=== PATIENT | female | born 1965 | race Caucasian/White ===

== ENCOUNTER 2021-05-30 16:44 | Emergency (ER) | payer BC, SELFPAY ==
--- NOTE | ~2021-05-30 | XR_ITS ---
EXAMINATION: XR wrist RT min 3V EXAM DATE: 05/30/2021 17:54 INDICATION: Initial encounter following injury, with pain of the right wrist. TECHNIQUE: Right wrist frontal, frontal with ulnar deviation, oblique and lateral projections obtain ed and reviewed. There is no prior study for comparison. FINDINGS: Right wrist scapholunate joint space is maintained. There is equivocal acute closed posttra umatic nondisplaced fracture of the right radial distal metaphysis, or this could be a congenital con tour abnormality. Please check for point tenderness overlying this location, finding has been indicat ed on the exam for clinical correlation. No other suspicious findings. IMPRESSION: Possible nondisplaced right radial distal metaphyseal fracture dorsally laterally. Reviewed, dictated and finalized at location A. O FORMING MACHINE OPERATOR IMPRESSION: Possible nondisplaced right radial distal metaphyseal fracture franklyn emmanuelle laterally.
[2021-05-30 17:11] VITALS: BP 175/90; PULSE 62; RESP 20; TEMP 36.7; O2SAT 100
--- NOTE | 2021-05-30 17:14 | ED.FALL ---
HPI - Fall General Chief Complaint: Extremity Injury, Upper Stated Complaint: fall,rt arm,face and knee pain Time Seen by Provider: 05/30/21 17:14 Source: patient and RN notes reviewed Mode of arrival: ambulatory Limitations: no limitations History of Present Illness HPI Narrative: 55-year-old female presents to the [facility] with complaints of right wrist, right knee pain after tripping and falling at the theater. Did hit her right side of face, no loss of consciousness, no dizziness, no nausea vomiting. Denies any change in vision or blurry vision. No midline tenderness. Patient denies any chest pain or abdominal pain. No fevers. Denies shortness of breath. Small bruise measuring 1 cm in diameter to the right cheek. Patient is also complaining of right knee discomfort but right wrist pain hurts the most. Walks with a normal gait. No treatment prior to arrival Related Data Allergies Allergy/AdvReac Type Severity Reaction Status Date / Time cefprozil [From Cefzil] Allergy Rash Verified 05/30/21 17:43 Review of Systems Review of Systems: All systems reviewed & are unremarkable except as noted in HPI and below Constitutional: Constitutional: Reports no additional constitutional complaints and Denies chills Eyes: Eyes: Reports no additional eye complaints, Denies change in vision and Denies photophobia ENT: Reports system reviewed and no additional complaints, except as documented Cardiovascular: Cardiovascular: Reports no additional cardiovascular complaints Respiratory: Respiratory: Reports no additional respiratory complaints Gastrointestinal: Gastrointestinal: Reports no additional gastrointestinal complaints Musculoskeletal: Musculoskeletal: Reports as per HPI, Denies back pain and Reports arthralgias (Right wrist, right knee) Integumentary/Breasts: Skin/Breast: Reports system reviewed and no additional complaints, except as docu, Denies erythema and Denies rash Neurologic: Reports system reviewed and no additional complaints, except as documented, Denies confusion, Denies vertigo, Denies dizziness, Denies syncope, Denies headache(s), Denies focal weakness, Denies numbness and Denies weakness Psychiatric: Psychiatric: Reports no additional psychiatric complaints Allergic/Immunologic: Allergic/Immunologic: Reports no additional allergic/immunologic complaints [facility] Past Medical History Medical History (Updated 05/30/21 @ 19:52 by Eryn Keating) Bipolar affect, depressed Depression High cholesterol Hypertension Irregular heartbeat Surgical History Surgical History (Updated 05/30/21 @ 19:52 by Eryn Keating) History of laparoscopic adjustable gastric banding 2011 Social History Social History (Updated 05/30/21 @ 19:52 by Eryn Keating) Living arrangements: with family Gender identity (if verbalized by the patient): Female Comments At the time of my signature, I reviewed and agree with the nursing past medical, surgical, social, and family history. There is no relevant family history pertinent to the patient complaint. Exam Const: General: healthy appearing, no acute distress and alert Nutritional Appearance: well nourished and obese Orientation/consciousness: patient oriented x3 Limitations: no limitations HENMT: Head: normal to inspection Ears: external ears normal, TM's normal bilaterally and EAC's normal Eyes: Conjunctivae: conjunctivae normal Pupils: Equal, round and reactive pupils present Direct Ophthalmoscopy: no photophobia Neck: Neck: normal visual inspection, no lymphadenopathy and no meningeal signs Chest: Chest palpation & inspection: normal inspection of the chest Resp: Effort & Inspection: normal respiratory effort and no use of accessory muscles Auscultation: clear to auscultation bilaterally, no crackles, no rales, no rhonchi and no wheezes Cardio: Rate: regular rate Rhythm: regular rhythm GI: GI Palp: Yes Soft to palpation and No Tenderness to palpation pr
--- NOTE | 2021-05-30 18:13 | PC.NURSE ---
Need radial gutter splint per provider.
== END 2021-05-30 18:41 | disposition home or self-care (01) ==
PROVIDERS: Emergency Provider Nurse Practitioner
DX: S52.501A Unspecified fracture of the lower end of right radius, initial encounter for closed fracture (principal); W01.0XXA Fall on same level from slipping, tripping and stumbling without subsequent striking against object, initial encounter; Y92.254 Theater (live) as the place of occurrence of the external cause; E78.00 Pure hypercholesterolemia, unspecified; I10 Essential (primary) hypertension; F32.A Depression, unspecified
CPT/HCPCS: 29125; 73110; 99204; A4565; G0463

== ENCOUNTER 2022-01-29 07:40 | Outpatient (CLI) | payer BC, SELFPAY ==
--- NOTE | ~2022-01-29 | MM_ITS ---
EXAMINATION: MM screening aditya BI w [place] HISTORY: Screening mammogram TECHNIQUE: Craniocaudal and mediolateral oblique 3-D tomosynthesis images were obtained and synthetic 2-D images were generated. CAD analysis was submitted and interpreted. COMPARISON: No prior mammogram is available for comparison at this institution. BREAST PARENCHYMAL COMPOSITION: There are scattered areas of fibroglandular density. FINDINGS: RIGHT BREAST: There is focal asymmetry in the middle third of the lower breast. LEFT BREAST: There is no suspicious mass, calcification, or architectural distortion to suggest malig matilde. IMPRESSION: 1. Right breast focal asymmetry 2. Additional mammographic views and possible breast ultrasound are recommended. BI-RADS Category 0: Incomplete: Needs additional imaging evaluation. Reviewed, dictated and finalized at location A. IMPRESSION: 1. Right breast focal asymmetry 2. Additional mammographic views and possible breast ultrasound are recommended . BI-RADS Category 0: Incomplete: Needs additional imaging evaluation.
== END 2022-01-29 07:41 | disposition home or self-care (01) ==
LOC: ANHIMG 07:42
PROVIDERS: PCP Internal Medicine; Visit Provider Internal Medicine
DX: Z12.31 Encounter for screening mammogram for malignant neoplasm of breast (principal); R92.8 Other abnormal and inconclusive findings on diagnostic imaging of breast
CPT/HCPCS: 77063; 77067

== ENCOUNTER 2022-08-22 09:33 | Outpatient (CLI) | payer BC, SELFPAY ==
--- NOTE | ~2022-08-22 | US_ITS ---
EXAMINATION: US renal BI DATE: 08/22/2022 12:24 INDICATION: N28.1 - Cyst of kidney, acquired TECHNIQUE: Multiple grayscale and Doppler ultrasound images of the kidneys were obtained. COMPARISON: None. FINDINGS: The right kidney measures 10.1 x 5.1 x 4.6 cm. The left kidney measures 9.8 x 5.1 x 5.2 cm. The kidne ys demonstrate normal parenchymal echogenicity. 1.8 cm simple left midpole cyst There is no hydroneph rosis. The bladder is distended, bilateral jets are seen, wall thickness 4 mm. IMPRESSION: Simple left renal cyst. Urinary bladder wall thickening, correlate with urinalysis. Reviewed, dictated and finalized at location K. R HAND IMPRESSION: Simple left renal cyst. Urinary bladder wall thickening, correlate with urinaly sis.
== END 2022-08-22 09:34 | disposition home or self-care (01) ==
PROVIDERS: PCP Internal Medicine; Visit Provider Nurse Practitioner Family
DX: N28.1 Cyst of kidney, acquired (principal)
CPT/HCPCS: 76775

== ENCOUNTER 2022-09-11 14:55 | Emergency (ER) | payer BC, SELFPAY ==
--- NOTE | ~2022-09-11 | XR_ITS ---
EXAM: XR sacrum coccyx min 2V DATE: 09/11/2022 15:32 HISTORY: fell 4 days, pain rt side sacrum/coccyx . COMPARISON: None available. FINDINGS: Normal mineralization. No fracture. One half bone width posterior displacement of the seco nd coccygeal element. No lytic or blastic lesion. Degenerative disc disease and facet arthropathy in the lumbar spine. Mild bilateral hip osteoarthritis. Pelvic phleboliths. No erosion or periosteal rashi nge. Soft tissues within normal limits. IMPRESSION: One half bone width posterior displacement of the second coccygeal element, which may be an acute or chronic finding, correlate with pain/tenderness. Reviewed, dictated and finalized at location K. OGRAPHIC PRESS OPERATOR APPRENTICE IMPRESSION: One half bone width posterior displacement of the second coccygeal element, which may be an acute or chronic finding, correlate with pain/tenderne ss.
[2022-09-11 15:06] VITALS: BP 143/80; PULSE 72; RESP 16; TEMP 36; O2SAT 100
--- NOTE | 2022-09-11 15:24 | ED.FALL ---
HPI - Fall General Chief Complaint: Fall Stated Complaint: Lower Back Pain Due to Fall Time Seen by Provider: 09/11/22 15:08 Source: patient Mode of arrival: ambulatory Limitations: no limitations History of Present Illness HPI Narrative: Hanna is a 57-year-old female patient presenting to the clinic today with complaints of tailbone pain times 4-5 days. She reports that her smoke alarm detector was chirping around 4:00 a.m. and she was up on the step stool trying to replace the battery when she fell backwards and landed on her bottom on a hard wood floor. States she has been taking Tylenol and ibuprofen with minimal relief. Related Data Home Medications Medication Instructions Recorded Confirmed divalproex 250 mg tablet,delayed 250 mg PO QAM 05/30/21 09/11/22 release (Depakote) fluoxetine 20 mg capsule 40 mg PO DAILY 05/30/21 09/11/22 levomefolate calcium 15 mg tablet 15 mg PO DAILY 09/11/22 09/11/22 Allergies Allergy/AdvReac Type Severity Reaction Status Date / Time cefprozil [From Cefzil] Allergy Rash Verified 09/11/22 15:07 Review of Systems Review of Systems: Pertinent positives per HPI. Patient denies any fever, chills, rash, headache, visual changes, dizziness, cough, runny nose, sore throat, shortness of breath, chest pain, palpitations, nausea, vomiting, diarrhea, constipation, abdominal pain, or any urinary issues. [facility] Past Medical History Medical History Bipolar affect, depressed Depression High cholesterol History of multiple miscarriages Hypertension Irregular heartbeat Surgical History Surgical History History of laparoscopic adjustable gastric banding 2012 S/P dilation and curettage Family History Family History Other Asthma Diabetes mellitus Hypertension Lung cancer Social History Social History Smoking status: Never smoker Second hand tobacco smoke exposure: Yes Alcohol intake: current Substance use: never Lack of Transportation: No Lack of Food: Never True Current Housing: I Have Housing Concerned About Future Housing: No Difficulty Paying Gas/Electric Bills: No Difficulty Paying for Meds: No Currently Unemployed: No Education: Associate Degree Difficulty w/ Childcare or Family Care: No Living arrangements: with family Gender identity (if verbalized by the patient): Female Comments At the time of my signature, I reviewed and agree with the nursing past medical, surgical, social, and family history. There is no relevant family history pertinent to the patient complaint. Exam Narrative: General: Well-developed, well nourished, in no apparent distress Head: Normocephalic, atraumatic. Cardio: Regular rate and rhythm, s1 and s2 normal, no murmur appreciated. Resp: Clear to auscultation bilaterally, no rhonchi, rales, wheezing or rubs. Musculoskeletal: No deformity, mild tenderness to palpation over the tailbone, grossly normal range of motion, muscle strength strong and equal, peripheral pulse strong, no edema, no cyanosis, normal gait and station Course Course Emergency Course: Portions of this record may have been created with voice recognition software. Level of Care: Express Care Visit Vital Signs Vital signs: Vital Signs Temperature 36.0 C L 09/11/22 15:06 Pulse Rate 72 09/11/22 15:06 Respiratory Rate 16 09/11/22 15:06 Blood Pressure 143/80 H 09/11/22 15:06 Pulse Oximetry 100 09/11/22 15:06 Oxygen Delivery Room Air 09/11/22 15:06 Temperature 36.0 C L 09/11/22 15:06 Pulse Rate 72 09/11/22 15:06 Respiratory Rate 16 09/11/22 15:06 Blood Pressure 143/80 H 09/11/22 15:06 Pulse Oximetry 100 09/11/22 15:06 Oxygen Delivery Room Air 09/11/22 15:06 Vital signs reviewed
== END 2022-09-11 16:00 | disposition home or self-care (01) ==
PROVIDERS: Emergency Provider Nurse Practitioner Family; PCP Nurse Practitioner Family
DX: S32.2XXA Fracture of coccyx, initial encounter for closed fracture (principal); W17.89XA Other fall from one level to another, initial encounter; E78.00 Pure hypercholesterolemia, unspecified; I10 Essential (primary) hypertension
CPT/HCPCS: 72220; 99213; G0463

== ENCOUNTER → 2022-11-16 12:37 | Outpatient (CLI) | payer BC, SELFPAY ==
--- NOTE | ~2022-11-16 | US_ITS ---
EXAMINATION: US thyroid DATE: 11/16/2022 12:59 INDICATION: Nontoxic single thyroid nodule TECHNIQUE: Multiple ultrasound images of the thyroid were obtained. COMPARISON: None. FINDINGS: The right thyroid lobe measures 4.8 x 1.9 x 2.1 cm. The left thyroid lobe measures 3.8 x 1.0 x 1.1 c m. There are a pair of similar appearing solid hypoechoic wider than tall nodules in the right thyro id with smooth margins and without echogenic foci (TI-RADS 4, moderately suspicious , FNA if >=1.5 cm , annual followup is >=1 cm). The larger at the upper pole measures 1.9 cm in maximal diameter and th e smaller and more inferior measures 1.4 cm. There is a third 6 mm right thyroid nodule which is slig htly small cystic component demonstrated similar imaging features also TI RADS 4. There is normal ech otexture, echogenicity and vascular flow throughout the remaining thyroid gland. IMPRESSION: 1. 3 TI RADS 4 right thyroid nodules. Recommend ultrasound-guided biopsy of the largest which measure s 1.9 cm. Reviewed, dictated and finalized at location A. IMPRESSION: 1. 3 TI RADS 4 right thyroid nodules. Recommend ultrasound-guided biopsy of the largest which measures 1.9 cm.
== END ==
PROVIDERS: PCP Nurse Practitioner Family; Visit Provider Nurse Practitioner Family
DX: E04.1 Nontoxic single thyroid nodule (principal)
CPT/HCPCS: 76536

== ENCOUNTER 2022-11-27 10:14 | Outpatient (CLI) | payer BC, SELFPAY ==
--- NOTE | ~2022-11-27 | US_ITS ---
EXAMINATION: US FNA w image guidance DATE: 11/27/2022 11:26 INDICATION: Nontoxic single thyroid nodule TECHNIQUE: A time-out was performed to verify the patient's name, date of , and procedure to be performed . The procedure and its benefits and risks were discussed with the patient. Risks specifically discus sed included bleeding and infection. The patient understood the risks and agreed to proceed. The neck was prepped and draped in the usual sterile manner. 3 mL 1% lidocaine was used for local anesthesia . 6 passes were made with a 25G needle into the lesion. Appropriate needle location was documented with continuous sonographic guidance. A sterile bandage was applied. There were no immediate compli cations. FINDINGS: Grayscale ultrasound images demonstrate biopsy needles advanced into the largest 2.0 cm TI RADS 4 nod ule at the mid to superior right thyroid. IMPRESSION: 1. Successful ultrasound-guided fine needle aspiration of the largest 2.0 cm TI RADS 4 right thyroid nodule. Reviewed, dictated and finalized at location A. IMPRESSION: 1. Successful ultrasound-guided fine needle aspiration of the largest 2.0 cm T I RADS 4 right thyroid nodule.
== END 2022-11-27 10:15 | disposition home or self-care (01) ==
PROVIDERS: PCP Nurse Practitioner Family; Visit Provider Nurse Practitioner Family
DX: E04.1 Nontoxic single thyroid nodule (principal)
CPT/HCPCS: 10005; 88173; 88305

== ENCOUNTER 2023-02-20 15:02 | Outpatient (CLI) | payer BC, SELFPAY ==
--- NOTE | ~2023-02-20 | MM_ITS ---
EXAMINATION: MM screening aditya BI w [place] HISTORY: Screening mammogram TECHNIQUE: Craniocaudal and mediolateral oblique 3-D tomosynthesis images were obtained and synthetic 2-D images were generated. CAD analysis was submitted and interpreted. COMPARISON: 01/29/2022, 03/16/2021, 06/09/2019 bilateral screening mammogram examinations BREAST PARENCHYMAL COMPOSITION: The breasts are almost entirely fatty. FINDINGS: Stable mild fibroglandular asymmetry. There is no evidence of suspicious mass, calcificatio n, or architectural distortion to suggest malignancy in either breast. There has been no suspicious i nterval change. IMPRESSION: 1. No mammographic evidence of malignancy. 2. Recommend routine screening mammography in one year. BI-RADS Category 1: Negative Reviewed, dictated and finalized at location A.
== END 2023-02-20 15:03 | disposition home or self-care (01) ==
LOC: ANHIMG 15:04
PROVIDERS: PCP Nurse Practitioner Family; Visit Provider Nurse Practitioner Family
DX: Z12.31 Encounter for screening mammogram for malignant neoplasm of breast (principal)
CPT/HCPCS: 77063; 77067

== ENCOUNTER 2023-05-23 08:17 | Outpatient (CLI) | payer BC, SELFPAY ==
--- NOTE | ~2023-05-23 | US_ITS ---
EXAMINATION: US thyroid DATE: 05/23/2023 09:15 INDICATION: Nontoxic single thyroid nodule. TECHNIQUE: Multiple ultrasound images of the thyroid were obtained. COMPARISON: Thyroid ultrasound 11/16/2022, 11/27/2022 FINDINGS: The right thyroid lobe measures 4.9 x 1.7 x 2.1 cm. The left thyroid lobe measures 4.2 x 1.3 x 1.5 c m. In the right thyroid lobe, there is a 2.2 cm solid, hypoechoic, wider than tall nodule with daniel h margin without echogenic foci (TI-RADS TR4), stable from 11/27/22 when biopsy was benign. In the righ t thyroid lobe, there is a 1.5 cm solid, hypoechoic, wider than tall nodule with smooth margin withou t echogenic foci (TR4), stable from 11/16/22. In the right thyroid lobe, there is a 5 mm solid, hypoec hoic, wider than tall nodule with smooth margin without echogenic foci (TR4). In the left thyroid lob e, there is a 5 mm solid, hypoechoic, wider than tall nodule with smooth margin without echogenic foc i (TR4). IMPRESSION: 1. Stable multinodular goiter. Consider ultrasound-guided fine needle aspiration of the 1.5 cm right thyroid nodule. Reviewed, dictated and finalized at location E. IMPRESSION: 1. Stable multinodular goiter. Consider ultrasound-guided fine needle aspiratio n of the 1.5 cm right thyroid nodule.
== END 2023-05-23 08:18 | disposition home or self-care (01) ==
PROVIDERS: PCP Nurse Practitioner Family; Visit Provider Internal Medicine Endocrinology, Diabetes & Metabolism
DX: E04.2 Nontoxic multinodular goiter (principal)
CPT/HCPCS: 76536

== ENCOUNTER 2023-10-03 22:32 | Emergency (ER) | payer BC, SELFPAY ==
--- NOTE | ~2023-10-03 | CT_ITS ---
Non-contrast CT scan of the Abdomen and Pelvis Clinical indication: Flank pain Technique: 2.5 mm axial scans were obtained through the abdomen and pelvis without intravenous or or al contrast. Dose reduction technique was used on this scan by utilizing automated exposure control a nd iterative reconstruction technique. The dose-length product (DLP) was 1378.34 mGy-cm. Findings: Images through the lung bases reveal no abnormalities. There is no evidence of renal or ureteral calculi. The kidneys and the ureters are nondilated. The liver, spleen, pancreas, gallbladder, and adrenals appear normal. There is no aortic aneurysm. There is no evidence of bowel obstruction. Gastric lap band present. Normal appendix. Images through the pelvis were performed. There is no evidence of ascites or lymphadenopathy. Urinary bladder unremarkable. No pelvic mass seen. Impression: No significant abnormality seen. Reviewed, dictated and finalized at [facility]. Impression: No significant abnormality seen.
[2023-10-03 22:35] VITALS: BP 123/77; PULSE 98; RESP 15; TEMP 36.4; O2SAT 98
[2023-10-03 22:51] LABS: Basophils Percent Auto 0.4 % (0.2-1.2); Eosinophils Absolute Auto 0.1 K/mm3 (0-0.3); Eosinophils Percent Auto 0.7 % (0-4.4); Hematocrit 41.5 % (37.0-47.0); Hemoglobin 13.7 g/dL (12.0-15.0); Immature Granulocyte Absolute 0.02 K/mm3 (0.00-0.031); Immature Granulocyte Percent A 0.2 % (0-0.5); Lymphocytes Absolute Auto 2.88 K/mm3 (0.9-3.2); Lymphocytes Percent Auto 34.4 % (18.3-44.2); Mean Corpuscular Hemoglobin 27.1 pg (26-34); Mean Platelet Volume 11.3 fl (7.4-10.4); Monocytes Absolute Auto 0.6 K/mm3 (0.1-0.6); Monocytes Percent Auto 6.9 % (2.6-8.5); Neutrophils Absolute Auto 4.8 K/mm3 (1.3-6.7); Neutrophils Percent Auto 57.4 % (45.5-73.1); Platelet Count Result 227 k/mm3 (150-375); Red Blood Count 5.06 M/mm3 (4.2-5.4); Red Cell Distribution Width 14.5 % (11.5-14.5); White Blood Count 8.4 K/mm3 (4.5-10.0)
[2023-10-03 23:05] LABS: Alanine Aminotransferase 16 U/L (6-35); Albumin Level 4.1 g/dL (3.5-5.1); Alkaline Phosphatase 83 U/L (38-126); Anion Gap 13 mmol/L (8-16); Aspartate Amino Transferase 25 U/L (14-36); Bilirubin,Total 0.6 mg/dL (0.2-1.3); Blood Urea Nitrogen 18 mg/dL (7-17); Calcium 9.7 mg/dL (8.4-10.2); Carbon Dioxide 18 mmol/L (22-30); Chloride 106 mmol/L (98-107); Estimated CRCL calculation 82 ml/min; Estimated Glomerular Filt Rate > 60; Glucose 128 mg/dL (65-110); Lipase 81 U/L (23-300); Potassium 3.7 mmol/L (3.4-5.0); Sodium 137 mmol/L (137-145)
[2023-10-04 00:17] LABS: Appearance Urine Clear (Clear); Bacteria Urine None Seen /hpf; Bilirubin Urine Negative (Negative); Blood Urine Negative (Negative); Color Urine Dark Yellow (Yellow); Glucose Urine UA Negative (Negative); Ketones Urine 3+ mg/dL (Negative); Leukocyte Esterase Ur Trace LEU/UL (Negative); Need Manual Microscopic Reviewed; Nitrate Urine Negative (Negative); Non Pathogenic Casts 0-2; Protein Urine 1+ mg/dL (Negative); RBC Urine 0-2 /hpf (0-2); Specific Grav Ur 1.032 (1.001-1.035); Squamous Epithelial Cell Urine Occasional /hpf (Few); WBC Urine 0-5 /hpf (0-3)
[2023-10-04 00:18] LABS: Add Urine Microscopic? YES
[2023-10-04 00:32] VITALS: BP 187/98; PULSE 83; RESP 15; O2SAT 100
[2023-10-04] MEDS: KETOROLAC 15 MG/ML VIAL (*BKC) IV PUSH (00:34)
[2023-10-04] MEDS: ACETAMINOPHEN 500 MG TABLET 1000 MG PO (00:34)
[2023-10-04] MEDS: HYDROmorphone HCL INJ (*CRX) 1 MG/ML SYR 0.5 MG IV PUSH (00:36)
--- NOTE | 2023-10-04 04:17 | PC.NURSE ---
See downtime charting
[2023-10-04 04:18] VITALS: BP 184/86; PULSE 90; RESP 18; O2SAT 100
[2023-10-04 05:20] VITALS: BP 151/75; PULSE 86; RESP 15; O2SAT 95
--- NOTE | 2023-10-08 09:30 | ED.GENADULT ---
HPI - General Adult General Chief complaint: Abdominal Pain Stated complaint: flank pain Time Seen by Provider: 10/03/23 23:34 History of Present Illness HPI narrative: this is a 58-year-old female presenting ED with chief complaint of left flank pain and groin pain. Patient states that it woke her from sleep. Is mostly in her left glute wraps around into. It is worse with movement. She denies fevers chills chest pain difficulty breathing abdominal pain or urinary symptoms. She is not taking anything for pain yet. Related Data Home Medications Medication Instructions Recorded Confirmed fluoxetine 20 mg capsule 40 mg PO DAILY 05/30/21 10/07/23 cholecalciferol (vitamin D3) 10 10 mcg PO DAILY 02/13/23 10/07/23 mcg (400 unit) capsule levomefolate calcium 15 mg tablet 7.5 mg PO DAILY 09/09/23 10/07/23 acetaminophen 500 mg tablet 500 mg PO TID PRN 10/07/23 10/07/23 (Tylenol Extra Strength) Allergies Allergy/AdvReac Type Severity Reaction Status Date / Time cefprozil [From Cefzil] Allergy Rash Verified 10/07/23 13:16 [facility] Past Medical History Medical History Bipolar affect, depressed Depression High cholesterol History of multiple miscarriages Hypertension Irregular heartbeat Surgical History Surgical History History of laparoscopic adjustable gastric banding 2012 S/P dilation and curettage Family History Family History Other Asthma Diabetes mellitus Hypertension Lung cancer Social History Social History Smoking status: Never smoker Second hand tobacco smoke exposure: Yes Alcohol intake: current Substance use: never Lack of Transportation: No Lack of Food: Never True Current Housing: I Have Housing Concerned About Future Housing: No Difficulty Paying Gas/Electric Bills: No Difficulty Paying for Meds: No Currently Unemployed: No Education: Associate Degree Difficulty w/ Childcare or Family Care: No Living arrangements: with family Gender identity (if verbalized by the patient): Female Exam Narrative: APPEARANCE: No apparent distress. Head: atraumatic. EYES: EOMI, NOSE: Atraumatic NECK: Trachea midline RESPIRATORY: No increased rate of breathing CARDIOVASCULAR: RRR, ABDOMINAL: Abdomen is soft nontender without guarding rebound MUSCULOSKELETAl: some tenderness in left paralumbar region. Negative straight leg bilaterally. groin exam revealed no rashes, palpable pulses. No tenderness to palpation NEURO: Alert. Moving 4/4 extremities SKIN:: Warm, dry. Normal color PSYCHIATRIC: Normal affect Course Vital Signs Vital signs: Vital Signs Temperature 97.5 F L 10/03/23 22:35 Pulse Rate 98 10/03/23 22:35 Respiratory Rate 15 10/03/23 22:35 Blood Pressure 123/77 10/03/23 22:35 Pulse Oximetry 98 10/03/23 22:35 Oxygen Delivery Room Air 10/03/23 22:35 Temperature 97.5 F L 10/03/23 22:35 Pulse Rate 86 10/04/23 05:20 Respiratory Rate 15 10/04/23 05:20 Blood Pressure 151/75 H 10/04/23 05:20 Pulse Oximetry 95 10/04/23 05:20 Oxygen Delivery Room Air 10/03/23 22:35 Medical Decision Making MDM Narrative Medical decision making narrative: -Course: 58-year-old female presenting with left glute/groin pain. Laboratory studies and imaging negative for acute findings. Patient was treated with multiple rounds of pain medication and muscle relaxers with some improvement. Patient discharged with primary care follow-up ddx: MUSCLE STRAIN, MUSCLE SPASM KIDNEY STONE, UTI, INTRA-ABDOMINAL Vital Signs Vital Signs: Vital Signs Temperature 97.5 F L 10/03/23 22:35 Pulse Rate 98 10/03/23 22:35 Respiratory Rate 15 10/03/23 22:35 Blood Pressure 123/77 10/03/23 22:35 Pulse Oximetry 98 03/1
== END 2023-10-04 05:33 | disposition home or self-care (01) ==
PROVIDERS: Emergency Provider Emergency Medicine; PCP Nurse Practitioner Family
DX: R10.32 Left lower quadrant pain (principal); E78.00 Pure hypercholesterolemia, unspecified; I10 Essential (primary) hypertension; F31.9 Bipolar disorder, unspecified
CPT/HCPCS: 36415; 74176; 80053; 81025; 83690; 85025; 96374; 96375; 99284; A9270; J1170; J1885; J3360; J7030

== ENCOUNTER 2023-10-23 08:44 | Outpatient (CLI) | payer BC, SELFPAY ==
--- NOTE | ~2023-10-23 | DEXA_ITS ---
Bone Density Report Name: YADI GAMEZ Age: 58 Sex: Female Ethnicity: White Date of : 1965 Indication: postmenopausal; screening for osteoporosis; history of glucocorticoids; Referring Provider: IRON GUO Study: Bone densitometry was performed. Exam Date: October 23, 2023 Accession number: [id number] Bone Density: Region BMD T-score Z-score Classification AP Spine(L1-L4) 1.071 0.2 1.6 Normal Femoral Neck (Left) 0.736 -1.0 0.2 Normal Total Hip (Left) 0.984 0.3 1.3 Normal Femoral Neck (Right) 0.778 -0.6 0.6 Normal Total Hip (Right) 0.965 0.2 1.1 Normal Total Hip Mean 0.975 0.3 1.2 Normal World Health Organization criteria for BMD impression classify patients as: Normal (T-score at or above -1.0), Osteopenia (T-score between -1.0 and -2.5), or Osteoporosis (T-score at or below -2.5). 10-year Fracture Risk: FRAX not reported because: All T-scores for Spine Total, Hip Total, Femoral Neck at or above -1.0 Clinical Information Provided by Patient: Has taken Glucocorticoids Has used the following medications: Vitamin D Patient maximum height was 66 No regular weight bearing exercise Does not regularly consume dairy products Onset of menses at age 10 Number of children 1 Impression: The patient has normal bone mass. The patient has risk factors, including: history of glucocorticoid therapy. Discussion: BONE DENSITY IS ABOVE THE MINIMUM DESIRABLE LEVEL AT ALL SKELETAL SITES TESTED. This patient?s bone mineral density is above the minimum desirable level (T-score -1.0 or better) at all sites measured. The patient should follow a healthful lifestyle (good nutrition with adequate calcium and vitamin D, and appropriate weight-bearing exercise). Follow-Up: Consider repeating this study in 5 years or sooner if there is some new clinical indication. Reported by: RAJINDER on 10/23/2023 9:18:00 AM. Reviewed, dictated and finalized at location Jeffy ORELLANA
== END 2023-10-23 08:45 | disposition home or self-care (01) ==
LOC: ANHIMG 08:47
PROVIDERS: PCP Nurse Practitioner Family; Visit Provider Internal Medicine Endocrinology, Diabetes & Metabolism
DX: Z13.820 Encounter for screening for osteoporosis (principal); Z78.0 Asymptomatic menopausal state; Z92.241 Personal history of systemic steroid therapy
CPT/HCPCS: 77080

== ENCOUNTER 2024-02-20 09:40 | Outpatient (CLI) | payer BC, SELFPAY ==
--- NOTE | ~2024-02-20 | US_ITS ---
Thyroid ultrasound. Clinical History: Nontoxic thyroid nodule COMPARISON: 05/23/2023 Findings: Real-time sonography of the thyroid gland was performed. The right lobe measures 4.9 x 2.1 x 1.8 cm. The left lobe measures 4.5 x 1.3 x 1.0 cm. The isthmus is 2 mm in AP diameter. There is a 2.0 x 1.5 x 1.4 hypoechoic solid nodule at the right mid to upper pole. There is a 1.3 x 1 .2 x 1.2 cm hypoechoic solid nodule at the right lower pole. There is an additional 0.6 cm hypoechoic solid nodule at the right lower pole. There is a 0.7 cm hypoechoic solid nodule at the posterior aspect of the left mid to upper pole. Impression: Stable bilateral thyroid nodules, as detailed above.. Reviewed, dictated and finalized at [facility]. Impression: Stable bilateral thyroid nodules, as detailed above..
== END 2024-02-20 09:41 | disposition home or self-care (01) ==
PROVIDERS: PCP Nurse Practitioner Family; Visit Provider Internal Medicine Endocrinology, Diabetes & Metabolism
DX: E04.2 Nontoxic multinodular goiter (principal)
CPT/HCPCS: 76536

== ENCOUNTER 2024-05-21 13:39 | Outpatient (CLI) | payer BC, SELFPAY ==
--- NOTE | ~2024-05-21 | CT_ITS ---
Non-contrast Head CT History: Tremor Technique: Axial non-contrast imaging of the brain was performed. Dose reduction technique was used on this scan by utilizing automated exposure control and iterative reconstruction technique. The dose -length product (DLP) was 605.33 mGy-cm. Findings: There is no evidence of intracranial hemorrhage, mass lesion, or acute infarct. Brain par enchyma appears normal. The ventricles and subarachnoid spaces are normal in size. The calvarium ap pears normal. The visualized paranasal sinuses and mastoid air cells are clear. Impression: No significant abnormality seen. Reviewed, dictated and finalized at location . Impression: No significant abnormality seen.
== END 2024-05-21 13:40 | disposition home or self-care (01) ==
PROVIDERS: PCP Nurse Practitioner Family; Visit Provider Nurse Practitioner Family
DX: R25.1 Tremor, unspecified (principal)
CPT/HCPCS: 70450

== ENCOUNTER 2024-09-28 00:43 | Day surgery (SDC) | payer BC, SELFPAY ==
[2024-09-24 13:40] VITALS: BMI 32.8
--- OUTSIDE RECORDS SUMMARY | 2024-09-28 00:47 | XMS_ITS ---
Author Organization [facility] Address [address] [place] [address] [address] [address] Care Team Providers Care Regional Forester Name Role Phone JOSE ALFREDO SUYAPAChelsie Primary Care Provider Unavailab Jerel Abdalla Unavailable [phone] Migration, Provider Unavailable Unavailable REASON FOR VISIT EMR-[facility] [place] Social History Sex Assigned At : Social History Observation Description Sex Assigned At Female Encounters Encounter Location Date Provider Diagnosis [facility] [employer] [place] [id number] [facility] [address] [address] 12/07/2023 Provider Migration Plan Of Treatment Next Appt Details Provider Name:Jerel Gooden , 10/26/2024 10:30:00 AM, [facility], [address], [id number], Progress Notes * VERA HARJINDERRAMIREZB:1964 (58 yo F)Acc No.[id number]:12/07/2023 Patient: YADI GONZALES :1965 A ge:58 Y S ex:Female Address:[address] [place] [address], [id number] Subjective: * Chief Complaints: * E MR-Hardik * Medical History: * Surgical History: * Hospitalization/Major Diagno stic Procedure: * Medications: Objective: * Vitals: * Physical Examination: Assessment: Plan: * Treatment: * Procedure Codes: * true * Date: Generated for Printi ng/Faxing/eTransmitting on: 0 09/28/2024 12:47 AM CDT
--- OUTSIDE RECORDS SUMMARY | 2024-09-28 00:47 | XMS_ITS | Clinical Summary ---
Author Organization [facility] Address [address] [place] [address] Care Team Providers Care [employer] Name Role Phone Luis Piersona MIRELA Primary Care Provider [phone] Allergies Active Allergy Reactions Criticality Noted Date Comments Cefprozil Rash Low 04/06/2022 Medications metoprolol tartrate (LOPRESSOR) 25 MG tablet Take by mouth 2 (two) times daily. Active Vitamin D3 (VITAMIN D) 50 mcg tablet Active divalproex EC (DEPAKOTE) 250 MG tablet Take 1 tablet (250 mg total) by mouth 3 (three) times daily. Active L-Methylfolate- Algae (DEPLIN 15 OR) Active FLUoxetine (PROZAC) 20 MG capsule Take 1 capsule (20 mg total) by mouth 2 (two) times a day. Active tolterodine LA (DETROL LA) 4 MG 24 hr capsule 05/09/2023 Active Active Problems Problem Noted Date Diagnosed Date Other intervertebral disc degeneration, lumbar r egion 07/25/2023 Facet hypertrophy of lumbar region 07/25/2023 Class 3 severe obesity due t o excess calories with body mass index (BMI) of 40.0 to 44.9 in adult, unspecified whether serious comorbidity present 07/25/2023 Sacroiliitis 10/23/2022 Family History Medical History Relation Comments Diabetes Father Hyperlipidemia Father Arthritis Maternal Aunt Cancer Maternal Grandfather Diabetes Maternal Grandfather Alcohol Abuse Maternal Uncle Arthritis Maternal Uncle COPD Mother Cancer Mother Hypertension Mother Asthma Paternal Grandmother Depression Paternal Grandmother Diabetes Paternal Uncle Relation Status Comments Father Maternal Aunt Maternal Grandfather Maternal Uncle Mother Paternal Grandmother Paternal Uncle Social History Tobacco Use Types Packs/Day Years Used Date Smoking Tobacco: Never Smokeless Tobacco: Never Tobacco Cessation:Counseling Given: Not Answered Alcohol Use Standard Drinks/Week Comments Not Currently 0 (1 standard drink = 0.6 oz pur e alcohol) rare Comments No Sex and Gender Information Value Date Recorded Sex Assigned at Not on file Legal Sex Female 1:18 PM CDT Gender Identity Not on file Sexual Orientation Not on file Last Filed Vital Signs Vital Sign Reading Time Taken Comments Blood Pressure 137/88 07/25/2023 10:01 AM COMPUTER SPECIALIST Pulse 60 07/25/2023 10:01 AM COMPUTER SPECIALIST Temperature 36.4 C (97.6 F) 07/25/2023 10:01 AM COMPUTER SPECIALIST Respiratory Rate 20 05/10/2023 12:2 2 PM CDT Oxygen Saturation 98% 07/25/2023 10: 01 AM COMPUTER SPECIALIST Inhaled Oxygen Concentration - - Weight 115.6 kg (254 lb 12.8 oz) 2023 10:01 AM COMPUTER SPECIALIST Height 167.6 cm (5' 6 ) 07/25/2023 10:0 1 AM COMPUTER SPECIALIST Body Mass Index 41.13 07/25/2023 10:01 AM COMPUTER SPECIALIST Plan of Treatment Health Maintenance Due Date Last Done Comments Cervical Cancer Screening Pa p Smear (Age 30 to 64) Every 3 Years 1964 Colorectal Cancer Screening Colonoscopy (10 Years) 1964 Annual Physical 1967 PHQ-2 (Physician [place]) 1976 Hepatitis C 1982 DTaP, Tdap and Td Vaccines ( 1 - Tdap) 1983 Cervical Cancer Screening Pa p with HPV Testing (Age 30 to 64) Every 5 Years 1994 Cervical Cancer Screening with HPV 1994 Mammogram Screening 2004 Zoster Vaccines (1 of 2) 2014 COVID-19 Vaccine (2 - 2023-2 5 season) 2024 05/18/2021 Influenza Adult (#1) 2024 05/18/2021 RSV Immunization or 60+ Years (1 - Risk 60-74 years 1-dose series) 2024 PHQ-2 (Physician [place]) 07/22/2024 Meningococcal B Vaccine Aged Out No l onger eligible based on patient's age to complete this topic Meningococcal Vaccine Aged Out No marii maia eligible based on patient's age to complete this topic Pneumococcal Vaccine: Pediat rics (0 to 5 Years) and At-Risk Patients (6 to 64 Years) Aged Out No longer eligi ble based on patient's age to complete this topic RSV Immunizations Under 20 Months Aged Out No longer eligible based on patient's age to complete this topic Insurance Care Teams [employer] Relationship Specialty Start Date End Date Chelsie Pierson NP [address] [place] [address] PCP - General 01/29/23
[2024-09-28 08:26] VITALS: BP 144/89; PULSE 55; RESP 20; TEMP 35.9; O2SAT 100; BMI 33.0
[2024-09-28] MEDS: LACTATED RINGERS 1,000 ML 150 ML IV CONT (08:52)
--- NOTE | 2024-09-28 09:26 | WPDANESEPPF ---
Anes - Initial Pre Proc Eval Procedure: Operation Date: 09/28/24 09:30 Proposed Procedures p Screening Colonoscopy - Michael Arroyo DO Date/Time: 09/28/24 09:26 Surgeon: Michael Arroyo DO Pre Op Diagnosis: Screening for malignant neoplasm of colon Patient Data Age: 59 Gender: F Height: 1.68 m Weight: 92.8 kg Last Vital Signs Temp 35.9 C L 09/28/24 08:26 Pulse 55 L 09/28/24 08:26 Resp 20 09/28/24 08:26 BP 144/89 H 09/28/24 08:26 Pulse Ox 100 09/28/24 08:26 O2 Del Method Room Air 09/28/24 08:26 Allergies Allergy/AdvReac Type Severity Reaction Status Date / Time cefprozil (From Cefzil) Allergy Rash Verified 09/28/24 08:38 Home Medications ?Medication ?Instructions ?Recorded ?Confirmed ?Type fluoxetine 20 mg capsule 40 mg PO DAILY 05/30/21 09/28/24 History tolterodine 4 mg capsule,extended 4 mg PO DAILY #30 caps 05/08/22 09/28/24 Rx release 24 hr (Detrol LA) cholecalciferol (vitamin D3) 10 10 mcg PO DAILY 02/13/23 09/28/24 History mcg (400 unit) capsule levomefolate calcium 15 mg tablet 7.5 mg PO DAILY 09/09/23 09/28/24 History acetaminophen 500 mg tablet 500 mg PO TID PRN pain 10/07/23 09/24/24 History (Tylenol Extra Strength) albuterol sulfate 90 mcg/actuation 2 inh inhalation Q4H PRN shortness 07/09/24 09/24/24 Rx aerosol inhaler of breath or wheezing #8.5 grams dextromethorphan-guaifenesin 30 See Rx Instructions PO Q12H PRN 07/09/24 09/24/24 Rx mg-600 mg tablet extended cough #30 tabs hr (Mucinex DM) divalproex 250 mg tablet,extended 250 mg PO BID 08/20/24 09/28/24 History release 24 hr methocarbamol 750 mg tablet 750 mg PO TID 08/20/24 09/28/24 History sennosides 8.6 mg capsule (senna) 17.2 mg PO DAILY PRN constipation 08/20/24 09/24/24 History metoprolol tartrate 25 mg tablet 25 mg PO BID 90 days #180 tabs 09/24/24 09/28/24 Rx vitamin B complex 1 tablet PO DAILY 09/24/24 09/28/24 History Patient hx anesthesia problems: none Family hx anesthesia problems: none Results Review: All pre-operative results and documents have been reviewed as part of the pre-operative evaluation. [facility] Past Medical History Medical History History of multiple miscarriages Irregular heartbeat High cholesterol Depression Bipolar affect, depressed Hypertension Surgical History Surgical History (Reviewed 09/28/24 @ 09: by Christopher Morales MD) S/P dilation and curettage History of laparoscopic adjustable gastric banding 2011 Family History Family History Other Asthma Diabetes mellitus Hypertension Lung cancer Social History Social History Smoking status: Never smoker Second hand tobacco smoke exposure: Yes Alcohol intake: current Alcohol use details: 2 drinks a year Substance use: never Substance use type: does not use Do You Feel Safe in your Home?: Yes Lack of Transportation: No Lack of Food: Never True Current Housing: I Have Housing Concerned About Future Housing: No Difficulty Paying Gas/Electric Bills: No Difficulty Paying for Meds: No Currently Unemployed: No Education: Associate Degree Difficulty w/ Childcare or Family Care: No Living arrangements: with family Occupation/Education: retired Gender identity (if verbalized by the patient): Female Sexual Orientation (if Verbalized by the Patient): Straight or Heterosexual Spiritual care concerns: No Agree to blood products: Yes Anes - Eval Final PreProcedure Day of Procedure 09/28/24 09:26 Patient weight: obese Heart: regular rate and rhythm Lungs: clear to auscultation Airway: Mallampati scale class II Neurological: alert and oriented Last oral intake: >/= 8 hours ASA classification: III Emergent: no Anesthetic plan: proceed Anesthesia type and monitoring: general GIVS and standard monitoring Results Review: All pre-operative results and documents have been reviewed as part of the pre-operative evaluation. Informed Consent: The patient's anesthetic plan and its attendant risks and benefits were discussed with the patient/family/POA. Questions were solicited and answers provided to the satisfaction of the patient/family/POA.
--- NOTE | 2024-09-28 09:34 | PM.IMHP ---
H&P: HPI History of Present Illness Date/Time: 09/28/24 09:34 Chief Complaint: screening for colorectal cancer Narrative: this is a 59-year-old woman who presents for colonoscopy. She denies any hematochezia or melena. She denies any family history of colon cancer. Review of Systems Review of Systems: All systems reviewed & are unremarkable except as noted in HPI and below Constitutional: Constitutional: Denies chills, Denies fever(s), Denies headache(s) and Denies weight loss Eyes: Eyes: Denies change in vision ENT: Denies dizziness, Denies headache(s), Denies neck mass and Denies throat swelling Cardiovascular: Cardiovascular: Denies chest pain, Denies lightheadedness and Denies dyspnea Respiratory: Respiratory: Denies cough, Denies dyspnea and Denies wheezing Gastrointestinal: Gastrointestinal: Denies abdominal pain, Denies change in bowel habits, Denies nausea and Denies vomiting Genitourinary: Genitourinary: Denies hematuria and Denies dysuria Musculoskeletal: Musculoskeletal: Reports as per HPI Integumentary/Breasts: Skin/Breast: Reports as per HPI Neurologic: Denies dizziness and Denies headache(s) Allergic/Immunologic: Allergic/Immunologic: Denies throat swelling and Denies wheezing PMFSH Past Medical History Medical History History of multiple miscarriages Irregular heartbeat High cholesterol Depression Bipolar affect, depressed Hypertension Surgical History Surgical History S/P dilation and curettage History of laparoscopic adjustable gastric banding 2011 Family History Family History Other Asthma Diabetes mellitus Hypertension Lung cancer Social History Social History Smoking status: Never smoker Second hand tobacco smoke exposure: Yes Alcohol intake: current Alcohol use details: 2 drinks a year Substance use: never Substance use type: does not use Do You Feel Safe in your Home?: Yes Lack of Transportation: No Lack of Food: Never True Current Housing: I Have Housing Concerned About Future Housing: No Difficulty Paying Gas/Electric Bills: No Difficulty Paying for Meds: No Currently Unemployed: No Education: Associate Degree Difficulty w/ Childcare or Family Care: No Living arrangements: with family Occupation/Education: retired Gender identity (if verbalized by the patient): Female Sexual Orientation (if Verbalized by the Patient): Straight or Heterosexual Spiritual care concerns: No Agree to blood products: Yes Meds Home Medications and Allergies Home Medications ?Medication ?Instructions ?Recorded ?Confirmed ?Type fluoxetine 20 mg capsule 40 mg PO DAILY 05/30/21 09/28/24 History tolterodine 4 mg capsule,extended 4 mg PO DAILY #30 caps 05/08/22 09/28/24 Rx release 24 hr (Detrol LA) cholecalciferol (vitamin D3) 10 10 mcg PO DAILY 02/13/23 09/28/24 History mcg (400 unit) capsule levomefolate calcium 15 mg tablet 7.5 mg PO DAILY 09/09/23 09/28/24 History acetaminophen 500 mg tablet 500 mg PO TID PRN pain 10/07/23 09/24/24 History (Tylenol Extra Strength) albuterol sulfate 90 mcg/actuation 2 inh inhalation Q4H PRN shortness 07/09/24 09/24/24 Rx aerosol inhaler of breath or wheezing #8.5 grams dextromethorphan-guaifenesin 30 See Rx Instructions PO Q12H PRN 07/09/24 09/24/24 Rx mg-600 mg tablet extended cough #30 tabs [id number] hr (Mucinex DM) divalproex 250 mg tablet,extended 250 mg PO BID 08/20/24 09/28/24 History release 24 hr methocarbamol 750 mg tablet 750 mg PO TID 08/20/24 09/28/24 History sennosides 8.6 mg capsule (senna) 17.2 mg PO DAILY PRN constipation 08/20/24 09/24/24 History metoprolol tartrate 25 mg tablet 25 mg PO BID 90 days #180 tabs 09/24/24 09/28/24 Rx vitamin B complex 1 tablet PO DAILY 09/24/24 09/28/24 History Allergies Allergy/AdvReac Type Severity Reaction Status Date / Time cefprozil (From Cefzil) Allergy Rash Verified 09/28/24 08:38 Vital Signs Vital Signs - 24 hr 09/28/24 08:26 Temperature 96.6 F L Pulse Rate 55 L Respiratory Rate 20 Blood Pressure 144/89 H Pulse Oximetry 100 Oxygen Delivery Room Air Exam Const: General: no acute distress and alert Orientation/consciousness: patient oriented x3 HENMT: Head: normocephalic and atraumatic Ears: hearing grossly normal bilaterally Face/Nose/Sinus: Normal nares present Mouth: Yes Normal oral and palatal mucosa present Eyes: Periorbital: periorbital findings normal Sclera: sclerae normal EOM: EOMs intact bilaterally Neck: Neck: normal visual inspection, no lymphadenopathy and trachea midline Chest: Chest palpation & inspection: normal inspection of the chest Resp: Effort & Inspection: normal respiratory effort Auscultation: clear to auscultation bilaterally Cardio: Jugular venous distension: no JVD Rate: regular rate Rhythm: regular rhythm Heart sounds: S1 normal heart sound present and S2 normal heart sound present Peripheral pulses: Peripheral pulses 2+ throughout GI: Inspection: normal to inspection GI Palp: Yes Soft to palpation, No Tenderness to palpation present (GI), No Guarding due to palpation present (GI) and No Rebound tenderness present Percussion: Yes normal to percussion Auscultation: normal bowel sounds : General: Yes no CVA tenderness Back/Spine/Pelvis: Back: no CVA tenderness Neuro: General: patient oriented x3, no focal motor deficits and CN's II-XI intact bilaterally Cognition (Neuro): normal cognition Speech: normal speech Motor exam (neuro): 5/5 motor strength present throughout Extrem: General: capillary refill normal and no clubbing, cyanosis or edema Assessment and Plan Assessment and plan (1) Screening for colorectal cancer: Code(s): Z12.11 - Encounter for screening for malignant neoplasm of colon; Z12.12 - Encounter for screening for malignant neoplasm of rectum Status: Acute Assessment and Plan: I have recommended colonoscopy. I have discussed the procedure, risks, benefits, and alternatives. Questions were answered. Patient is agreeable to proceed.
[2024-09-28 10:05] VITALS: BP 145/74; PULSE 54; RESP 18; O2SAT 100
[2024-09-28 10:15] VITALS: BP 160/81; PULSE 48; RESP 18; O2SAT 100
[2024-09-28 10:25] VITALS: BP 174/81; PULSE 52; RESP 18; O2SAT 100
== END 2024-09-28 10:30 | disposition home or self-care (01) ==
PROVIDERS: PCP Nurse Practitioner Family; Visit Provider Surgery
PROC: 0DJD8ZZ Inspection of Lower Intestinal Tract, Via Natural or Artificial Opening Endoscopic (ICD-10-PCS; CPT 45378; principal; 2024-09-28 09:30)
DX: Z12.11 Encounter for screening for malignant neoplasm of colon (principal); K57.30 Diverticulosis of large intestine without perforation or abscess without bleeding; I10 Essential (primary) hypertension; E78.00 Pure hypercholesterolemia, unspecified; R00.9 Unspecified abnormalities of heart beat; F32.A Depression, unspecified; E66.9 Obesity, unspecified; Z68.33 Body mass index [BMI] 33.0-33.9, adult; Z79.51 Long term (current) use of inhaled steroids; Z98.890 Other specified postprocedural states; Z98.84 Bariatric surgery status; Z80.1 Family history of malignant neoplasm of trachea, bronchus and lung
CPT/HCPCS: 45378; J2704; J7120

== ENCOUNTER 2024-10-09 07:48 | Outpatient (CLI) | payer BC, SELFPAY ==
--- NOTE | ~2024-10-09 | MR_ITS ---
MRI of the cervical spine Clinical History: Radiculopathy Technique: Axial T2-weighted and gradient images, and sagittal T1-weighted, T2-weighted, and STIR steven ges were acquired. Findings: No acute fracture. There is minimal grade 1 anterolisthesis of C3 over C4. There is straigh tening of the normal cervical lordosis. No bone marrow signal abnormality seen. At C2-C3, there is no significant disc bulge or herniation. There is bilateral facet arthropathy, lef t worse than right. There is probable mild left neural foraminal narrowing. Right neural foramen pres erved. No canal stenosis or cord compression. At C3-C4, there is mild disc osteophyte complex with bilateral facet arthropathy. There is left neura l foraminal narrowing, and probable mild right neural foraminal narrowing. There is mild canal stenos is without efrem cord compression. At C4-C5, there is no significant disc bulge or herniation. There is mild facet arthropathy. There is right neural foraminal narrowing, mild. Left neural foramen preserved. No canal stenosis or cord com pression. At C5-C6, there is no significant disc bulge or herniation. There is mild canal stenosis without cord compression. There is right neural foraminal narrowing with right facet arthropathy. Left neural for amen preserved. At C6-C7, there is moderate to advanced degenerative disc narrowing with mild disc osteophyte complex . There is probable mild bilateral neural foraminal narrowing. No efrem canal stenosis or cord compre ssion. No abnormal signal seen in the spinal cord. Paravertebral soft tissues are unremarkable. Impression: Moderate degenerative spondylosis overall, as above. Reviewed, dictated and finalized at [facility]. Impression: Moderate degenerative spondylosis overall, as above.
== END 2024-10-09 07:49 | disposition home or self-care (01) ==
LOC: MICIMG 07:49
PROVIDERS: PCP Nurse Practitioner Family; Visit Provider Orthopaedic Surgery
DX: M47.892 Other spondylosis, cervical region (principal)
CPT/HCPCS: 72141

== ENCOUNTER 2025-01-13 09:40 | Outpatient (CLI) | payer BC, SELFPAY ==
--- NOTE | ~2025-01-13 | XR_ITS ---
EXAMINATION: XR UGIAC wo kub DATE: 01/13/2025 10:28 INDICATION: Bariatric surgery and one month of vomiting TECHNIQUE: The patient drank thick barium, gas-producing crystals, and thin barium. Fluoroscopic spot radiographs of the hypopharynx and esophagus were obtained. A total of 1647 images were recorded. Fl uoroscopy exposure time was 2.5 minutes. Total DAP was 10.347 mGycm^2 COMPARISON: None. FINDINGS: The pharynx is symmetric and without evidence of mass lesion or mucosal irregularity. The e sophagus is normal without mass or stricture. Esophageal motility is normal. No hiatal hernia. Postop erative change of adjustable laparoscopic banding procedure with normal phi angle of 49 degrees. Ther e was no gastroesophageal reflux with provocative maneuvers. IMPRESSION: 1. Adjustable laparoscopic banding procedure which is in expected position with normal phi angle of 4 9 degrees and with narrowing of the lumen at the level of the lap band to 3-4 mm. 2. Otherwise unremarkable study with no hiatal hernia or gastroesophageal reflux. Reviewed, dictated and finalized at location A. IMPRESSION: 1. Adjustable laparoscopic banding procedure which is in expected position with normal phi angle of 49 degrees and with narrowing of the lumen at the level of the lap band to 3-4 mm. 2. Otherwise unremarkable study with no hiatal hernia or gastroesophageal reflu x.
== END 2025-01-13 09:41 | disposition home or self-care (01) ==
PROVIDERS: PCP Nurse Practitioner Family
DX: E66.01 Morbid (severe) obesity due to excess calories (principal); Z68.34 Body mass index [BMI] 34.0-34.9, adult; I10 Essential (primary) hypertension; Z98.84 Bariatric surgery status
CPT/HCPCS: 74246

== ENCOUNTER 2025-01-16 09:13 | Outpatient (CLI) | payer BC, SELFPAY ==
--- NOTE | ~2025-01-16 | XR_ITS ---
EXAM: XR lumbar spine min 4V DATE: 01/16/2025 10:20 HISTORY: M54.50 - Low back pain, unspecified . COMPARISON: None available. FINDINGS: Gastric band, in good position. 5 nonrib-bearing lumbar-type vertebral bodies. Pedicles int act. 3 mm anterolisthesis at L4-5 that is stable in flexion and extension. 2 mm retrolisthesis at L2- 3 in extension. 3 mm anterolisthesis at L3-4 in flexion. Vertebral body heights preserved. Disc space s maintained. Multilevel mild lumbar disc space narrowing. Multilevel moderate mid and lower lumbar f acet hypertrophy and sclerosis. No fracture or dislocation. IMPRESSION: Dynamic grade 1 listheses noted at L2-3 and L3-4. Stable grade 1 anterolisthesis at L4-5. Multilevel mild lumbar degenerative disc disease. Multilevel moderate mid and lower lumbar facet art hropathy. Reviewed, dictated and finalized at location K. IMPRESSION: Dynamic grade 1 listheses noted at L2-3 and L3-4. Stable grade 1 an terolisthesis at L4-5. Multilevel mild lumbar degenerative disc disease. Multil evel moderate mid and lower lumbar facet arthropathy.
--- NOTE | ~2025-01-16 | MR_ITS ---
MRI of the lumbar spine Clinical History: Back pain Technique: Axial T2-weighted images, and sagittal T1-weighted, T2-weighted, and T2 fat-sat images wer e acquired. Findings: There is no fracture or subluxation of the lumbar spine. Vertebral bodies maintain normal h eight and alignment. No bone marrow signal abnormality seen. At L1-L2, there is no disc bulge or herniation. There is moderate facet hypertrophy. No spinal canal stenosis or neural foraminal narrowing. At L2-L3, there is minimal disc bulge with moderate facet hypertrophy. No spinal canal stenosis. Ther e is minimal right neural foraminal narrowing. Left neural foramen preserved. At L3-L4, there is moderate degenerative disc narrowing. There is disc bulge and moderate facet arthr opathy, with moderate to advanced spinal canal stenosis/thecal sac compression. Neural foramina are p reserved. At L4-L5, there is minimal disc bulge with advanced facet arthropathy. No central canal stenosis or d efinite neural foraminal narrowing. At L5-S1, there is advanced degenerative disc narrowing. There is severe facet arthropathy. No disc b ulge or herniation. No spinal canal stenosis. There is moderate bilateral neural foraminal narrowing. Paravertebral soft tissues are unremarkable. Impression: Moderate to advanced degenerative spondylosis at L3-L4, as detailed above. Moderate bilateral neural foraminal narrowing at L5-S1. Reviewed, dictated and finalized at [facility]. Impression: Moderate to advanced degenerative spondylosis at L3-L4, as detailed above. Moderate bilateral neural foraminal narrowing at L5-S1.
--- NOTE | ~2025-01-16 | XR_ITS ---
EXAM: XR sacroiliac joints min 3V DATE: 01/16/2025 10:20 HISTORY: M54.50 - Low back pain, unspecified . COMPARISON: 09/11/2022. FINDINGS: Normal mineralization. No fracture or dislocation. No lytic or blastic lesion. Lumbar dege nerative disc disease and facet arthropathy. Mild degenerative changes the bilateral SI joints and bi lateral hips. No erosion or periosteal change. Soft tissues within normal limits. Phleboliths and sca ttered vascular calcifications. IMPRESSION: Mild degenerative changes in the bilateral SI joints. Reviewed, dictated and finalized at location K.
== END 2025-01-16 09:14 | disposition home or self-care (01) ==
PROVIDERS: PCP Nurse Practitioner Family; Visit Provider Nurse Practitioner Adult Health
DX: M51.369 Other intervertebral disc degeneration, lumbar region without mention of lumbar back pain or lower extremity pain (principal); M47.896 Other spondylosis, lumbar region
CPT/HCPCS: 72110; 72148; 72202

== ENCOUNTER 2025-07-12 12:25 | Outpatient (CLI) | payer BC, SELFPAY ==
--- NOTE | ~2025-07-12 | XR_ITS ---
EXAMINATION: XR chest 2V 07/12/2025 12:42 INDICATION: Cough PROCEDURE: 2 view chest COMPARISON: No prior studies for comparison. FINDINGS: The lungs are clear. The cardiomediastinal silhouette is within normal limits. There are no pleural effusions. There is no pneumothorax suspected. IMPRESSION: 1: NO ACUTE CARDIOPULMONARY DISEASE. Reviewed, dictated and finalized at location O. [employer]
== END 2025-07-12 12:26 | disposition home or self-care (01) ==
LOC: MICIMG 12:26
PROVIDERS: PCP Nurse Practitioner Family; Visit Provider Nurse Practitioner Family
DX: R05.9 Cough, unspecified (principal)
CPT/HCPCS: 71046

== ENCOUNTER 2025-07-21 09:26 | Outpatient (CLI) | payer BC, SELFPAY ==
--- NOTE | ~2025-07-21 | MM_ITS ---
EXAMINATION: MM screening [facility], [place] [facility] [place] HISTORY: Z12.31 - Encounter for screening mammogram for malignant ... TECHNIQUE: Craniocaudal and mediolateral oblique 3-D tomosynthesis images were obtained and synthetic 2-D images were generated. CAD analysis was submitted and interpreted. COMPARISON: 2022, 2021, and 2020 BREAST PARENCHYMAL COMPOSITION: There are scattered areas of fibroglandular tissue. FINDINGS: No suspicious masses are seen. There are no suspicious calcifications. No unexplained architectural distortion is seen. There are no skin or nipple abnormalities identified. There is no adenopathy seen on the images submitted. IMPRESSION: No mammographic evidence to suggest malignancy is seen. The patient may return to screening mammography as per ACR guidelines. BI-RADS 1 - Negative. Reviewed, dictated and finalized at location C. P PRESS OPERATOR
== END 2025-07-21 09:27 | disposition home or self-care (01) ==
LOC: MICIMG 09:26
PROVIDERS: PCP Nurse Practitioner Family; Visit Provider Nurse Practitioner Family
DX: Z12.31 Encounter for screening mammogram for malignant neoplasm of breast (principal)
CPT/HCPCS: 77063; 77067